=== PATIENT | male | born 1965 | race Native Hawaiian/Other Pacific Islander ===

== ENCOUNTER 2016-10-12 16:24 | Emergency (ER) | payer OTHER ==
[~2016-10-12] VITALS: Ht 177.8 cm; Wt 87.1 kg
[2016-10-12 16:54] LABS: PLATELET COUNT 233 K/uL (142-355)
[2016-10-12 17:05] LABS: POTASSIUM 3.2 mmol/L (3.6-5.2); SODIUM 136 mmol/L (136-145)
[2016-10-12 17:10] VITALS: BP 188/89
== END 2016-10-12 17:25 | disposition short-term general hospital (02) ==
LOC: ED 16:24
DX: S41.112A Laceration without foreign body of left upper arm, initial encounter (principal); W29.8XXA Contact with other powered hand tools and household machinery, initial encounter; Y92.69 Other specified industrial and construction area as the place of occurrence of the external cause
CPT/HCPCS: 80053; 80320; 85027; 96361; 96374; 96375; 99285; J2270; J2405